=== PATIENT | male | born 1975 | race Caucasian/White ===

== ENCOUNTER 2021-01-09 07:12 | Emergency (ER) | payer BC, OTHER ==
[2021-01-09] MEDS ORDERED: NA CHLORIDE 0.9% 1,000 ML ONE (08:00)
[2021-01-09 08:08] LABS: Absolute Lymphocytes (CBC) 0.9 K/uL (0.7-4.9); Basophils % 0.4 % (0-1.3); Hematocrit 36.2 % (39.6-49.0); Lymphocytes % 14.9 % (15.3-44.8); MPV 6.5 fL (7.6-11.3)
[2021-01-09 08:15] LABS: Protime INR 1.04
[2021-01-09 08:30] LABS: ALT/SGPT 30 U/L (12-78); AST/SGOT 12 U/L (15-37); Albumin 3.6 g/dL (3.4-5.0); Alkaline Phosphatase 88 U/L (45-117); BUN Blood Urea Nitrogen 15 mg/dL (7-18); Bicarbonate 23 mmol/L (21-32); Bilirubin Direct 0.1 mg/dL (0-0.2); Bilirubin Total 0.4 mg/dL (0.2-1.0); Glucose Level 94 mg/dL (74-106); Potassium 4.2 mmol/L (3.5-5.1); Protein, Total 6.7 g/dL (6.4-8.2); Sodium Level 134 mmol/L (136-145); Troponin (Emerg Dept Use Only) < 0.02 ng/mL (0.0-0.045)
--- NOTE | 2021-01-09 09:11 | EDPHYS ---
Physician Documentation [facility] Name: Juancarlos Coombs Age: 45 yrs Sex: Male : 1975 Arrival Date: 01/09/2021 Time: 07:19 Bed 23 Private MD: ED Physician Tobi Vuong HPI: 01/09 07:31 This 45 yrs old Male presents to ER via EMS with complaints of Dizziness. rn 07:31 The patient has experienced near-syncope. Onset: The symptoms/episode began/occurred rn just prior to arrival. Duration: This was a single episode. Associated injury: The patient did not suffer any apparent associated injury. Associated signs and symptoms: Pertinent positives: diarrhea, dizziness, lightheadedness, Pertinent negatives: abdominal pain, ataxia, blurred vision, chest pain, combativeness, confusion, diaphoresis, headache, seizure, shortness of breath, vertigo, vomiting. Current symptoms: Currently, the patient is not experiencing any symptoms. The patient has not experienced similar symptoms in the past. The patient has been recently seen by a physician:. Patient reports was at work, seated position, felt lightheaded and dizzy. No syncope. Denies any preceding pain or symptoms. EMS picked him up and now back to baseline. EMS reports borderline low blood pressure and sinus tachycardia. Patient reports a few months of intermittent diarrhea, had blood in it only when wiping a few weeks ago but no longer bleeding. Has follow-up appointment with GI for colonoscopy and evaluation. Denies taking any blood thinners. Woke up this morning and took his lisinopril prior to work. Denies any fever/cough/shortness of breath/abdominal pain/vomiting. Historical: - PMHx: 07:28 Hypertensive disorder; Hypercholesterolemia; aj2 - Immunization history:: Client reports having NOT received the Covid vaccine. - Social history:: Smoking status: unknown. - Family history:: not pertinent. - Hospitalizations: : No recent hospitalization is reported. ROS: 07:31 Constitutional: Negative for fever, chills, and weight loss, Eyes: Negative for injury, rn pain, redness, and discharge, ENT: Negative for injury, pain, and discharge, Neck: Negative for injury, pain, and swelling, Cardiovascular: Negative for chest pain, palpitations, and edema, Respiratory: Negative for shortness of breath, cough, wheezing, and pleuritic chest pain, Abdomen/GI: Negative for abdominal pain, positive for diarrhea Back: Negative for injury and pain, : Negative for injury, bleeding, discharge, and swelling, MS/Extremity: Negative for injury and deformity, Skin: Negative for injury, rash, and discoloration, Neuro: Negative for headache, weakness, numbness, tingling, and seizure. 07:31 All other systems are negative. Exam: 07:31 Constitutional: This is a well developed, well nourished patient who is awake, alert, rn and in no acute distress. Head/Face: Normocephalic, atraumatic. Eyes: Pupils equal round and reactive to light, extra-ocular motions intact. Lids and lashes normal. Conjunctiva and sclera are non-icteric and not injected. Cornea within normal limits. Periorbital areas with no swelling, redness, or edema. ENT: Dry mucous membranes Cardiovascular: Regular rate and rhythm. No pulse deficits. Respiratory: No increased work of breathing, no retractions or nasal flaring. Abdomen/GI: Soft, non-tender Skin: Warm, dry MS/ Extremity: Pulses equal, no cyanosis. Neurovascular intact. Full, normal range of motion. Equal circumference. Neuro: Awake and alert, GCS 15, oriented to person, place, time, and situation. Cranial nerves II-XII grossly intact. Motor strength 5/5 in all extremities. Sensory grossly intact. Cerebellar exam normal. 09:09 ECG was reviewed by the Attending Physician. rn Vital Signs: 07:20 BP 103 / 69; Pulse 80; Resp 18; Temp 98.9; Pulse Ox 99% ; Weight 111.13 kg; Height 6 aj2 ft. 1 in. (185.42 cm); 07:28 BP 103 / 69; Pulse 80; Resp 18; Temp 98.9; Pulse Ox 99% ; aj2 08:22 BP 98 / 66; Pulse 78; Resp 18; Temp 98.0; Pulse Ox 100% ; aj2 10:46 BP 98 / 62; Pulse 73; Resp 18; Temp 98; Pulse Ox 100% on R/A; aj2 07:20 Body Mass Index 32.32 (111.13 kg, 185.42 cm) aj2 MDM: 07:19 Patient medically screened. rn 09:09 Differential Diagnosis: cardiac arrhythmia, GI bleed, idiopathic syncope, vasovagal rn episode, dehydration. Data reviewed: vital signs, nurses notes, lab test result(s), EKG, and as a result, I will discharge patient. Data interpreted: front desk monitor: rate is 78 beats/min, rhythm is normal sinus rhythm, regular, with no ectopy, Interpretation: normal rate, normal rhythm, Pulse oximetry: on room air is 100 %. Interpretation: normal. Counseling: I had a detailed discussion with the patient and/or guardian regarding: the historical points, exam findings, and any diagnostic results supporting the discharge/admit diagnosis, lab results, the need for outpatient follow up, to return to the emergency department if symptoms worsen or persist or if there are any questions or concerns that arise at home. Response to treatment: the patient's symptoms have markedly improved after treatment, the patient's condition has returned to base line, the patient is now symptom free, and as a result, I will discharge patient. Special discussion: I discussed with the patient/guardian in detail that at this point there is no indication for admission to the hospital. It is understood, however, that if the symptoms persist or worsen the patient needs to return immediately for re-evaluation. 01/09 07:20 Order name: CBC with Diff; Complete Time: 08: rn 01/09 07:20 Order name: Basic Metabolic Panel; Complete Time: : rn 01/09 07:20 Order name: Protime (+inr); Complete Time: : rn 01/09 07:20 Order name: Ptt, Activated; Complete Time: : rn 01/09 07:20 Order name: LFT's; Complete Time: : rn 01/09 07:20 Order name: Troponin (emerg Dept Use Only); Complete Time: 08: rn 01/09 07:20 Order name: IV Start; Complete Time: 08: rn 01/09 07:20 Order name: EKG; Complete Time: :01/09 07:20 Order name: EKG - Nurse/Tech; Complete Time: 08:19 rn EC:09 Rate is 81 beats/min. Rhythm is regular. QRS Forman is Normal. IA interval is normal. QRS rn interval is normal. QT interval is normal. No Q waves. T waves are Normal. No ST changes noted. Clinical impression: Normal ECG. Interpreted by me. Reviewed by me. Administered Medications: 08:19 Drug: NS 0.9% 1000 ml Route: IV; Rate: 1000 ml; Site: left antecubital; aj2 09:00 Drug: NS 0.9% 1000 ml Route: IV; Rate: 1000 ml; Site: left antecubital; aj2 10:47 Follow up: Rate change bolus; IV Status: Completed infusion aj2 Disposition Summary: 01/09/21 09:10 Discharge Ordered Location: Home rn Problem: new rn Symptoms: have improved rn Condition: Stable rn Diagnosis - Dizziness and giddiness rn - Dehydration rn Followup: rn - With: Private Physician - When: As needed - Reason: Recheck today's complaints, Re-evaluation by your physician Discharge Instructions: - Discharge Summary Sheet rn - Dehydration, Adult rn - Dizziness rn Forms: - Medication Reconciliation Form rn - Thank You Letter rn - 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
--- NOTE | 2021-01-09 09:11 | ER ---
Nurse's Notes [facility] Name: Juancarlos Coombs Age: 45 yrs Sex: Male : 1975 Arrival Date: 01/09/2021 Time: 07:19 Bed 23 Private MD: Diagnosis: Dizziness and giddiness;Dehydration Presentation: 01/09 07:20 Chief complaint: Patient states: Reports dizziness 1 hour prior to arrival. Denies aj2 dizziness \\T\\ this time. Reports " I think my blood pressure is low" and history of HTN. Coronavirus screen: Vaccine status: Patient reports being unvaccinated. Ebola Screen: No symptoms or risks identified at this time. Initial Sepsis Screen: Does the patient meet any 2 criteria? No. Patient's initial sepsis screen is negative. Does the patient have a suspected source of infection? No. Patient's initial sepsis screen is negative. Risk Assessment: Do you want to hurt yourself or someone else? Patient reports no desire to harm self or others. Onset of symptoms was January 09, 2021. 07:20 Method Of Arrival: EMS: [facility] aj2 07:20 Acuity: BARON 2 aj2 Triage Assessment: 07:28 General: Appears in no apparent distress. comfortable, obese, well groomed, well aj2 nourished, Behavior is calm, cooperative, appropriate for age. Pain: Denies pain. Historical: - PMHx: 07:28 Hypertensive disorder; Hypercholesterolemia; aj2 - Immunization history:: Client reports having NOT received the Covid vaccine. - Social history:: Smoking status: unknown. - Family history:: not pertinent. - Hospitalizations: : No recent hospitalization is reported. Screenin:31 Abuse screen: Denies threats or abuse. Denies injuries from another. Nutritional aj2 screening: No deficits noted. Tuberculosis screening: No symptoms or risk factors identified. Fall Risk None identified. Assessment: 07:32 Reassessment: Patient appears in no apparent distress at this time. Patient is alert, aj2 oriented x 3, equal unlabored respirations, skin warm/dry/pink. Patient states feeling better. 08:22 Reassessment: Patient appears in no apparent distress at this time. Patient is alert, aj2 oriented x 3, equal unlabored respirations, skin warm/dry/pink. Patient denies pain at this time. Patient states symptoms have improved. Vital Signs: 07:20 BP 103 / 69; Pulse 80; Resp 18; Temp 98.9; Pulse Ox 99% ; Weight 111.13 kg; Height 6 aj2 ft. 1 in. (185.42 cm); 07:28 BP 103 / 69; Pulse 80; Resp 18; Temp 98.9; Pulse Ox 99% ; aj2 08:22 BP 98 / 66; Pulse 78; Resp 18; Temp 98.0; Pulse Ox 100% ; aj2 10:46 BP 98 / 62; Pulse 73; Resp 18; Temp 98; Pulse Ox 100% on R/A; aj2 07:20 Body Mass Index 32.32 (111.13 kg, 185.42 cm) aj2 ED Course: 07:19 Patient arrived in ED. rn 07:19 Tobi Vuong MD is Attending Physician. rn 07:20 Dinaa Alarcon is Primary Nurse. aj2 07:27 Triage completed. aj2 07:28 Arm band placed on left wrist. aj2 07:31 No apparent distress. Resting quietly. aj2 07:31 Patient has correct armband on for positive identification. aj2 07:31 No provider procedures requiring assistance completed. IV is patent, is intact. aj2 08:20 Troponin (emerg Dept Use Only) Sent. aj2 08:20 LFT's Sent. aj2 08:20 Basic Metabolic Panel Sent. aj2 08:22 No apparent distress. Resting quietly. aj2 08:22 IV is patent, is intact. aj2 10:46 IV discontinued. aj2 Administered Medications: 08:19 Drug: NS 0.9% 1000 ml Route: IV; Rate: 1000 ml; Site: left antecubital; aj2 09:00 Drug: NS 0.9% 1000 ml Route: IV; Rate: 1000 ml; Site: left antecubital; aj2 10:47 Follow up: Rate change bolus; IV Status: Completed infusion aj2 Outcome: 09:10 Discharge ordered by . rn 10:46 Discharged to home ambulatory. aj2 10:46 Condition: stable 10:46 Discharge instructions given to patient, Instructed on discharge instructions, follow up and referral plans. Demonstrated understanding of instructions, follow-up care. 10:48 Patient left the ED. aj2 Signatures: Tobi Vuong MD MD rn Jenkins, Angelea aj2
[2021-01-09 10:58] VITALS: O2SAT 100
[2021-01-09 10:59] VITALS: BP 98/62; TEMP 98
--- NOTE | 2021-01-10 10:27 | EKG ---
Test Date: 2021-01-09 Test Time: 08:09:17 Senior Principal Architect: JESSICA MEASUREMENT RESULTS: Intervals: Rate: 81 [place]: 156 QRSD: 84 QT: 358 QTc: 415 Alexander: P: 30 [place]: 156 QRS: 7 T: 11 INTERPRETIVE STATEMENTS: Normal sinus rhythm Normal ECG No previous ECG available for comparison Electronically Signed On 01-10-21 10:22:26 CDT by Michael Buck
== END 2021-01-09 10:48 | disposition home or self-care (01) ==
LOC: ER 07:12
DX: E86.0 Dehydration (principal); I10 Essential (primary) hypertension
CPT/HCPCS: 96361; 93005; 85025; 80048; 36415; 85610; 80076; 85730; 84484; 96360; 99284; J7030